=== PATIENT | female | born 1975 | race African-American/Black ===

== ENCOUNTER 2016-10-14 12:41 | Emergency (ER) | payer OTHER ==
[~2016-10-14] VITALS: Ht 175.3 cm; Wt 77.1 kg
--- NOTE | ~2016-10-14 | CR94 ---
[facility] A Service of [facility] [place] & [facility] RADIOLOGY TEXT RESULTS PATIENT: DON BARAKAT LOCATION: CFTX : 79 UNIT #: [id number] AGE: [address]: Katherine Matthews SEX: F ORDER DR: [id number] [facility] [address] [place], [place] [address] [id number] E MR#: [id number] Acc #: [id number] NAME: DON BARAKAT : 1975 SEX: F STUDY DATE/TIME: 10/14/2016 14:25 UNIT: [facility] ROOM: STUDY DESCRIPTION: CR Elbow Min 3 Views Rt Attending Physician: Katherine Matthews P.A.-C. Ordering Physician: Katherine Matthews P.A.-C. Primary Care Physician: Jacy Herring Aprn MEDICAL IMAGING REPORT This report is preliminary unless electronic signature is present EXAM Right elbow 3 views HISTORY Pain in right elbow since this morning. No known injury. FINDINGS AP and lateral examination of the elbow shows satisfactory articulation of the humerus with the proximal radius and ulna. There is no identifiable fracture, dislocation, joint effusion, or radiopaque foreign body in the soft tissues. IMPRESSION Normal elbow. Dictated by... Ramos Dobbs M.D. THIS IS AN ELECTRONICALLY VERIFIED REPORT Ramos Dobbs M.D. at 10/15/2016 6:53 PM Kevin TD: 10/14/2016 18:40 JOB #: [id number] MEDICAL IMAGING REPORT Page 1 of 1 COPY
[~2016-10-14 12:41] MED LIST: DIAZEPAM PO
== END 2016-10-14 15:34 | disposition home or self-care (01) ==
LOC: CFTX 12:41 → CED 12:41 → CFTX 13:56
DX: G58.8 Other specified mononeuropathies (principal); I10 Essential (primary) hypertension; F41.9 Anxiety disorder, unspecified; F17.210 Nicotine dependence, cigarettes, uncomplicated; Z88.8 Allergy status to other drugs, medicaments and biological substances
CPT/HCPCS: 29260; 73080; 99283